=== PATIENT | male | born 1970 | race Hispanic/Latino ===

== ENCOUNTER 2023-03-17 07:07 | Inpatient (IN) | payer BC ==
[2023-03-17 07:40] LABS: #Basophils 0.1 thou/uL (0.0-0.2); #Eosinphils 0.3 thou/uL (0.0-0.7); #Monocytes 0.8 thou/uL (0.11-0.59); #Neutrophils 5.3 thou/uL (1.40-6.50); %Basophils 0.8 % (0.0-1.0); %Lymphocytes 33.6 % (21.0-51.0); %Monocytes 7.6 % (0.0-10.0); Hematocrit 50.5 % (42.0-52.0); Hemoglobin 17.2 g/dL (14.0-18.0); Mean Corpuscular HGB CONC 34.1 g/dL (32.0-36.0); Mean Platelet Volume 9.3 fL (7.4-10.4); Platelet Count 253 10x3/uL (130-400); RBC Distribution Width 12.2 % (11.5-14.5); Red Blood Cell (RBC) Count 5.37 mill/uL (4.70-6.10); White Blood Cell (WBC) Count 9.9 10x3/uL (4.8-10.8)
[2023-03-17 08:03] LABS: ALT (SGPT) 37 U/L (8-55); AST (SGOT) 25 U/L (5-34); Albumin 4.9 g/dL (3.5-5.0); Alkaline Phosphatase 116 U/L (40-110); Anion Gap 15 mmol/L (10-20); BUN (Urea Nitrogen) 13 mg/dL (8.4-25.7); Bilirubin, Total 0.4 mg/dL (0.2-1.2); Calc. Creatinine Clearance 0 mL/min (70-130); Calcium 9.6 mg/dL (7.8-10.44); Carbon Dioxide 25 mmol/L (22-29); Chloride 103 mmol/L (98-107); Estimated GFR 93; Glucose 110 mg/dL (70-105); Potassium 3.8 mmol/L (3.5-5.1); Protein, Total 7.9 g/dL (6.0-8.3); Sodium 139 mmol/L (136-145)
[2023-03-17 08:06] LABS: Troponin I Less than 0.010 ng/mL (< 0.028)
[2023-03-17] MEDS ORDERED: Ondansetron PF 4 MG/2 ML Vial ONE (08:08)
[2023-03-17] MEDS ORDERED: Aspirin Chewable 81 MG TAB ONE (08:08)
[2023-03-17] MEDS ORDERED: Morphine 4 MG/ML VIAL ONE (08:08)
[2023-03-17] MEDS ORDERED: Ondansetron ODT 4 MG TAB PO PRN (08:48)
[2023-03-17] MEDS ORDERED: Nitroglycerin 0.4 MG TAB (25 Tab Bottle) SL PRN (08:48)
[2023-03-17] MEDS ORDERED: Acetaminophen 325 MG TAB PO PRN (08:48)
[2023-03-17 11:02] LABS: Troponin I 0.092 ng/mL (< 0.028)
[2023-03-17 16:15] VITALS: BMI 25.6
[2023-03-17] MEDS ORDERED: Communication Order-Pharmacy FS SCH (17:30)
[2023-03-18 06:27] LABS: Troponin I 5.791 ng/mL (< 0.028)
[2023-03-18] MEDS ORDERED: Heparin 10,000 UNITS/ 10 ML VIAL ONE (08:12)
[2023-03-18] MEDS ORDERED: Nitroglycerin 50 MG/250 ML BOT 0 ML ONE (08:12)
[2023-03-18] MEDS ORDERED: fentaNYL 50 mcg/mL 1 mL Vial ONE (08:12)
[2023-03-18] MEDS ORDERED: Lidocaine 1% (PF) 30 ML VIAL ONE (08:12)
[2023-03-18] MEDS ORDERED: Midazolam HCl 2 mg/2 ml Vial ONE (08:12)
[2023-03-18] MEDS ORDERED: Atorvastatin Calcium 40 MG TAB PO SCH ×2 (09:00→21:00)
[2023-03-18] MEDS ORDERED: Atropine Sulfate 1 mg/10 ml Syringe ONE (09:02)
[2023-03-18] MEDS ORDERED: Ondansetron PF 4 MG/2 ML Vial ONE (09:31)
[2023-03-18] MEDS ORDERED: TICAGRELOR 90 MG TABLET ONE (10:07)
[2023-03-18] MEDS ORDERED: TICAGRELOR 90 MG TABLET PO SCH (11:17)
[2023-03-18] MEDS: Aspirin Chewable 81 MG TAB PO SCH (17:37)
[2023-03-18] MEDS: Sodium Chloride 0.9% 1,000 ML IV SCH ×2 (17:37→18:30)
[2023-03-18] MEDS: Carvedilol 3.125 MG TAB PO SCH (17:51)
[2023-03-18] MEDS: TICAGRELOR 90 MG TABLET PO SCH (20:43)
[2023-03-19 04:51] LABS: #Basophils 0.1 thou/uL (0.0-0.2); #Eosinphils 0.3 thou/uL (0.0-0.7); #Monocytes 0.6 thou/uL (0.11-0.59); #Neutrophils 6.6 thou/uL (1.40-6.50); %Basophils 0.6 % (0.0-1.0); %Eosinophils 3.2 % (0.0-10.0); %Lymphocytes 17.4 % (21.0-51.0); %Monocytes 6.5 % (0.0-10.0); %Neutrophils 71.5 % (42.0-75.0); Hematocrit 44.5 % (42.0-52.0); Hemoglobin 15.4 g/dL (14.0-18.0); Mean Corpuscular HGB CONC 34.6 g/dL (32.0-36.0); Mean Corpuscular Volume 92.5 fl (78.0-98.0); Mean Platelet Volume 9.6 fL (7.4-10.4); Platelet Count 243 10x3/uL (130-400); Red Blood Cell (RBC) Count 4.81 mill/uL (4.70-6.10); White Blood Cell (WBC) Count 9.3 10x3/uL (4.8-10.8)
[2023-03-19 05:15] LABS: Critical Call Chem Troponin I RESULT DECREASING; Troponin I 2.245 ng/mL (< 0.028)
[2023-03-19 05:16] LABS: ALT (SGPT) 34 U/L (8-55); AST (SGOT) 34 U/L (5-34); Alkaline Phosphatase 111 U/L (40-110); Anion Gap 13 mmol/L (10-20); BUN (Urea Nitrogen) 13 mg/dL (8.4-25.7); Bilirubin, Total 0.5 mg/dL (0.2-1.2); Calc. Creatinine Clearance 120 mL/min (70-130); Carbon Dioxide 21 mmol/L (22-29); Chloride 105 mmol/L (98-107); Estimated GFR 106; Globulin 2.5 g/dL (2.4-3.5); Glucose 135 mg/dL (70-105); Potassium 3.8 mmol/L (3.5-5.1); Protein, Total 6.5 g/dL (6.0-8.3); Sodium 135 mmol/L (136-145)
[2023-03-19] MEDS ORDERED: Lisinopril 2.5 MG TAB PO SCH (09:00)
[2023-03-19] MEDS: Carvedilol 3.125 MG TAB PO SCH (09:20)
[2023-03-19] MEDS: TICAGRELOR 90 MG TABLET PO SCH (09:21)
[2023-03-19] MEDS: Aspirin Chewable 81 MG TAB PO SCH (09:21)
[2023-03-19 11:53] VITALS: BP 139/69; TEMP 97.4
[2023-03-20] MEDS ORDERED: FLU VACC QS2023-24(6MOS UP)/PF 60 MCG/0.5 ML SYRINGE IM ONE (17:15)
== END 2023-03-19 14:15 | disposition home or self-care (01) | DRG 322 ==
LOC: ERS 07:07 → ERHOLD 08:40 → 2SW 16:03 → OBSVTOIN 03-18 09:39
PROVIDERS: ADMIT Internal Medicine; ATTEND Internal Medicine
PROC: 027034Z Dilation of Coronary Artery, One Artery with Drug-eluting Intraluminal Device, Percutaneous Approach (ICD-10-PCS; principal; 2023-03-18)
PROC: 4A023N7 Measurement of Cardiac Sampling and Pressure, Left Heart, Percutaneous Approach (ICD-10-PCS; 2023-03-18)
PROC: B2151ZZ Fluoroscopy of Left Heart using Low Osmolar Contrast (ICD-10-PCS; 2023-03-18)
PROC: B2111ZZ Fluoroscopy of Multiple Coronary Arteries using Low Osmolar Contrast (ICD-10-PCS; 2023-03-18)
DX: I21.4 Non-ST elevation (NSTEMI) myocardial infarction (principal); E78.5 Hyperlipidemia, unspecified; G47.33 Obstructive sleep apnea (adult) (pediatric); Z95.1 Presence of aortocoronary bypass graft; Z79.82 Long term (current) use of aspirin; Z79.899 Other long term (current) drug therapy; Z82.49 Family history of ischemic heart disease and other diseases of the circulatory system
CPT/HCPCS: 36415; 71045; 80053; 84484; 85025; 85347; 92928; 93005; 93010; 93306; 93459; 94760; 96374; 96375; 97139; 99152; 99153; C1725; C1769; C1874; C1887; C9600; J0461; J1644; J1650; J2001; J2250; J2270; J2405; J3010

== ENCOUNTER 2023-05-26 18:32 | Inpatient (IN) | payer BC ==
[~2023-05-26 18:32] MED LIST: Iopamidol-370 76% 500 ML MDV (1 ML CHARGE) ONE
[2023-05-26 18:59] LABS: #Basophils 0.1 thou/uL (0.0-0.2); #Eosinphils 0.3 thou/uL (0.0-0.7); #Monocytes 1.1 thou/uL (0.11-0.59); #Neutrophils 7.7 thou/uL (1.40-6.50); %Basophils 0.5 % (0.0-1.0); %Eosinophils 2.5 % (0.0-10.0); %Lymphocytes 16.1 % (21.0-51.0); %Monocytes 9.9 % (0.0-10.0); %Neutrophils 70.3 % (42.0-75.0); Hematocrit 46.2 % (42.0-52.0); Hemoglobin 15.8 g/dL (14.0-18.0); Mean Corpuscular HGB CONC 34.2 g/dL (32.0-36.0); Mean Corpuscular Volume 93.7 fl (78.0-98.0); Mean Platelet Volume 9.3 fL (7.4-10.4); Platelet Count 245 10x3/uL (130-400); RBC Distribution Width 12.4 % (11.5-14.5); Red Blood Cell (RBC) Count 4.93 mill/uL (4.70-6.10)
[2023-05-26 19:25] LABS: ALT (SGPT) 52 U/L (8-55); AST (SGOT) 28 U/L (5-34); Albumin 4.2 g/dL (3.5-5.0); Alkaline Phosphatase 110 U/L (40-110); Anion Gap 10 mmol/L (10-20); BUN (Urea Nitrogen) 13 mg/dL (8.4-25.7); Bilirubin, Total 0.9 mg/dL (0.2-1.2); Calc. Creatinine Clearance 0 mL/min (70-130); Calcium 9.1 mg/dL (7.8-10.44); Carbon Dioxide 26 mmol/L (22-29); Chloride 103 mmol/L (98-107); Estimated GFR 103; Globulin 2.9 g/dL (2.4-3.5); Glucose 87 mg/dL (70-105); Lipase 23 U/L (8-78); Potassium 4.2 mmol/L (3.5-5.1); Protein, Total 7.1 g/dL (6.0-8.3); Sodium 135 mmol/L (136-145)
[2023-05-26 19:26] LABS: Troponin I Less than 0.010 ng/mL (< 0.028)
[2023-05-26] MEDS ORDERED: Aspirin Chewable 81 MG TAB ONE (21:22)
[2023-05-26] MEDS ORDERED: Nitroglycerin 0.4 MG TAB (25 Tab Bottle) ONE (21:57)
[2023-05-26] MEDS ORDERED: Lidocaine 2% Viscous Solution 10 ML, Aluminum & Magnesium Hydroxide 30 ML SSW SCH (23:00)
[2023-05-27 01:21] LABS: Magnesium 2.2 mg/dL (1.6-2.6)
[2023-05-27 01:22] LABS: Troponin I Less than 0.010 ng/mL (< 0.028)
[2023-05-27] MEDS ORDERED: Ondansetron ODT 4 MG TAB PO PRN (01:34)
[2023-05-27] MEDS ORDERED: Acetaminophen 325 MG TAB PO PRN (01:34)
[2023-05-27] MEDS ORDERED: Lidocaine 2% Viscous Solution 10 ML, Aluminum & Magnesium Hydroxide 30 ML SSW SCH (03:30)
[2023-05-27 04:23] LABS: #Basophils 0.1 thou/uL (0.0-0.2); #Eosinphils 0.3 thou/uL (0.0-0.7); %Basophils 0.6 % (0.0-1.0); %Eosinophils 2.4 % (0.0-10.0); %Lymphocytes 13.8 % (21.0-51.0); %Monocytes 8.1 % (0.0-10.0); %Neutrophils 74.4 % (42.0-75.0); Hematocrit 42.8 % (42.0-52.0); Hemoglobin 14.5 g/dL (14.0-18.0); Mean Corpuscular HGB CONC 33.9 g/dL (32.0-36.0); Mean Corpuscular Hemoglobin 31.5 pg (27.0-31.0); Mean Platelet Volume 9.7 fL (7.4-10.4); Platelet Count 242 10x3/uL (130-400); RBC Distribution Width 12.4 % (11.5-14.5); White Blood Cell (WBC) Count 12.1 10x3/uL (4.8-10.8)
[2023-05-27 04:55] LABS: ALT (SGPT) 44 U/L (8-55); AST (SGOT) 23 U/L (5-34); Albumin 3.7 g/dL (3.5-5.0); Alkaline Phosphatase 104 U/L (40-110); Anion Gap 13 mmol/L (10-20); BUN (Urea Nitrogen) 9 mg/dL (8.4-25.7); Bilirubin, Total 0.9 mg/dL (0.2-1.2); Calc. Creatinine Clearance 110 mL/min (70-130); Calcium 8.7 mg/dL (7.8-10.44); Carbon Dioxide 25 mmol/L (22-29); Chloride 100 mmol/L (98-107); Estimated GFR 104; Globulin 2.8 g/dL (2.4-3.5); Glucose 148 mg/dL (70-105); Potassium 3.9 mmol/L (3.5-5.1); Protein, Total 6.5 g/dL (6.0-8.3); Sodium 134 mmol/L (136-145)
[2023-05-27 05:00] LABS: Troponin I Less than 0.010 ng/mL (< 0.028)
[2023-05-27 07:36] LABS: Troponin I 0.013 ng/mL (< 0.028)
[2023-05-27] MEDS ORDERED: Doxycycline 100 MG in Syringe 0 ML IVPB SCH (09:00)
[2023-05-27] MEDS ORDERED: Lisinopril 5 MG TAB ONE (09:28)
[2023-05-27] MEDS ORDERED: Aspirin 81 mg Enteric Coated Tablet ONE (09:28)
[2023-05-27] MEDS ORDERED: Atorvastatin Calcium 40 MG TAB ONE (09:28)
[2023-05-27] MEDS ORDERED: Enoxaparin 40 MG (0.4 mL) SYRINGE ONE (09:29)
[2023-05-27] MEDS ORDERED: Carvedilol 6.25 MG TAB ONE (09:29)
[2023-05-27 09:31] LABS: Hemoglobin A1c 6.2 % (4.0-6.0)
[2023-05-27] MEDS: Enoxaparin 40 MG (0.4 mL) SYRINGE SC SCH (09:42)
[2023-05-27] MEDS: Doxycycline 100 MG in Sodium Chloride 0.9% 100 ML IVPB SCH ×2 (09:42→20:56)
[2023-05-27] MEDS: Atorvastatin Calcium 40 MG TAB PO SCH (09:42)
[2023-05-27] MEDS: Carvedilol 3.125 MG TAB PO SCH ×2 (09:43→16:21)
[2023-05-27] MEDS: Lisinopril 2.5 MG TAB PO SCH (09:43)
[2023-05-27] MEDS: Aspirin Chewable 81 MG TAB PO SCH (09:43)
[2023-05-27 09:48] VITALS: BP 118/81
[2023-05-27] MEDS: TICAGRELOR 90 MG TABLET PO SCH ×2 (10:23→21:03)
[2023-05-27] MEDS ORDERED: cefTRIAXone (ROCEPHIN) 1 GM VIAL ONE (10:49)
[2023-05-27] MEDS: cefTRIAXone\\ROCEPHIN 1 GM in Sodium Chloride 0.9% 100 ML IVPB SCH (10:51)
[2023-05-27 11:18] LABS: Bacteria/HPF None Seen HPF (None Seen); Bilirubin Negative (Negative); Blood, Urine Negative (Negative); CAUTI Indications for Culture Dysuria,urgency,freq; Clarity Clear (Clear); Glucose, Urine (Dipstick) Normal (Negative); Ketone, Urine Negative (Negative); Leukocyte Negative Leu/uL (Negative); Nitrite Negative (Negative); Protein, Urine (Dipstick) Negative (Neg-Trace); RBC/HPF 0-3 HPF (0-3); Specific Gravity, Urine 1.011 (1.002-1.036); Squamous Epithelial None Seen HPF (0-3); Urobilinogen Normal mg/dL (Less than 2); WBC/HPF 0-3 HPF (0-3)
[2023-05-27 11:19] LABS: Urine Culture Reflex No No
[2023-05-27 11:32] LABS: Legionella Urinary Ag Negative (Negative)
[2023-05-27] MEDS: Nitroglycerin 2% Ointment 1 INCH/1 GM Packet TOP SCH ×2 (15:09→20:55)
[2023-05-28 06:32] VITALS: BMI 24.9
[2023-05-28] MEDS: Atorvastatin Calcium 40 MG TAB PO SCH (10:49)
[2023-05-28] MEDS: Lisinopril 2.5 MG TAB PO SCH (10:49)
[2023-05-28] MEDS: Aspirin Chewable 81 MG TAB PO SCH (10:49)
[2023-05-28] MEDS: TICAGRELOR 90 MG TABLET PO SCH (10:49)
[2023-05-28] MEDS: Enoxaparin 40 MG (0.4 mL) SYRINGE SC SCH (10:49)
[2023-05-28] MEDS: cefTRIAXone\\ROCEPHIN 1 GM in Sodium Chloride 0.9% 100 ML IVPB SCH (10:50)
[2023-05-28] MEDS: Doxycycline 100 MG in Sodium Chloride 0.9% 100 ML IVPB SCH (10:50)
[2023-05-28] MEDS: Carvedilol 3.125 MG TAB PO SCH (10:52)
[2023-05-28 11:56] VITALS: TEMP 98.1
[2023-05-29] MEDS ORDERED: Ezetimibe 10 MG TAB PO SCH (09:00)
[2023-05-29 21:08] LABS: Mycoplasma pneumoniae IgG AB 390 U/mL (0-99); Mycoplasma pneumoniae IgM AB Less than 770 U/mL (0-769)
== END 2023-05-28 13:50 | disposition home or self-care (01) | DRG 202 ==
LOC: ERS 18:32 → ERHOLD 05-27 00:27 → IMCU/EMU 05-27 00:32
PROVIDERS: ADMIT Internal Medicine; ATTEND Family Medicine
DX: J40 Bronchitis, not specified as acute or chronic (principal); E87.1 Hypo-osmolality and hyponatremia; R07.89 Other chest pain; I25.10 Atherosclerotic heart disease of native coronary artery without angina pectoris; E78.5 Hyperlipidemia, unspecified; K21.9 Gastro-esophageal reflux disease without esophagitis; I10 Essential (primary) hypertension; Z95.5 Presence of coronary angioplasty implant and graft; Z95.1 Presence of aortocoronary bypass graft; Z79.82 Long term (current) use of aspirin; Z79.899 Other long term (current) drug therapy
CPT/HCPCS: 36415; 71045; 71275; 80053; 81001; 83036; 83690; 83735; 83880; 84484; 85025; 87899; 93005; J0696; J1650; J3490; Q9967